=== PATIENT | female | born 1945 | race Caucasian/White ===

== ENCOUNTER 2021-05-28 06:49 | Day surgery (SDC) | payer MEDICARE ==
[~2021-05-28] VITALS: Ht 167.6 cm; Wt 66.5 kg
[2021-05-28] VITALS (9 sets, daily range): BP systolic 107–127; BP diastolic 67–83
[2021-05-28] MEDS ORDERED: normal saline 1000ml 1,000 ML IV SCH ×2 (07:25→09:35)
[2021-05-28] MEDS ORDERED: MELO7.5T12 PO (07:41)
[2021-05-28] MEDS ORDERED: OXYC-150 PO (07:41)
[2021-05-28] MEDS ORDERED: MULT-1085 PO (07:41)
[2021-05-28 08:18] LABS: BASOPHILS # (AUTO) 0.1 X10'3 (0-0.2); BASOPHILS % (AUTO) 0.8 % (0-1); EOSINOPHILS # (AUTO) 0.1 X10'3 (0-0.9); EOSINOPHILS % (AUTO) 2.2 % (0-6); HEMATOCRIT 45.5 % (35.0-45.0); HEMOGLOBIN 15.2 g/dl (12.0-16.0); LYMPHOCYTES # (AUTO) 2.5 X10'3 (1.1-4.8); LYMPHOCYTES % (AUTO) 37.5 % (21-51); MEAN CORPUSCULAR HEMOGLOBIN 30.4 PG (27.0-31.0); MEAN CORPUSCULAR HGB CONC 33.5 g/dL (33.0-36.5); MEAN CORPUSCULAR VOLUME 90.7 FL (78-98); MEAN PLATELET VOLUME 7.9 FL (7.4-10.4); MONOCYTES # (AUTO) 0.6 X10'3 (0-0.9); MONOCYTES % (AUTO) 9.6 % (2-12); NEUTROPHILS # (AUTO) 3.3 X10'3 (1.8-7.7); NEUTROPHILS % (AUTO) 49.9 % (42-75); PLATELET COUNT 274 X10'3 (140-440); RED BLOOD COUNT 5.02 X10'6 (4.20-5.60); RED CELL DISTRIBUTION WIDTH 14.7 % (11.5-14.5); WHITE BLOOD COUNT 6.7 X10'3 (4.5-11.0)
[2021-05-28] MEDS ORDERED: LIDOcaine 1%/PF 5ML 10 MG/ML VIAL ONE (09:00)
[2021-05-28] MEDS ORDERED: fentaNYL/PF 50MCG/1 ML 2ML syringe ONE ×2 (09:01→09:38)
[2021-05-28] MEDS ORDERED: midazolam 1 mg/ML 2ml injection ONE ×2 (09:01→09:38)
[2021-05-28] MEDS ORDERED: iohexol 300 MG/1 ML 50ml polymer ONE ×2 (09:01→09:41)
[2021-05-28] MEDS ORDERED: cefazolin/dext.iso 2gm/100ml 100 ML IV ONE (09:15)
== END 2021-05-28 12:10 | disposition home or self-care (01) ==
LOC: SSTAY O 06:49
PROVIDERS: ATTEND Radiology Vascular & Interventional Radiology
DX: M80.08XA Age-related osteoporosis with current pathological fracture, vertebra(e), initial encounter for fracture (principal); M54.5 Low back pain; F17.210 Nicotine dependence, cigarettes, uncomplicated; Z79.899 Other long term (current) drug therapy; Z98.890 Other specified postprocedural states; Z96.651 Presence of right artificial knee joint
CPT/HCPCS: 22514; 36415; 85025; 99152; 99153; C1713; J2250; J3010; Q9967